=== PATIENT | male | born 1980 | race Caucasian/White ===

== ENCOUNTER 2017-10-25 22:17 | Emergency (ER) | payer MEDICAID, SELFPAY ==
[2017-10-25 22:18] VITALS: BP 145/82; PULSE 82; RESP 14; TEMP 36.2; O2SAT 97; BMI 20.7
--- NOTE | 2017-10-25 23:04 | ED.DEP ---
ED Disposition - Plan for ED Patient: Chief Complaint: Dental Instructions: ED Tooth Pain Prescriptions: Naproxen [Naprosyn] 500 mg PO BID PRN #20 tablet Penicillin V Potassium 500 mg PO 4X/DAY #40 tablet Referrals: NOT,DEFINED [Primary Care Provider] -
--- NOTE | 2017-10-25 23:06 | ED.VISSUMM ---
- ER Visit Summary Date of Service: 10/25/17 Chief Complaint: Dental pain History of Present Illness: The patient is a 36 M presenting with dental pain. He states this started today. He has pain is a right lower teeth. He tried Tylenol and Orajel at home. He does not currently have a dentist. He denies fever or swelling. Denies other complaints. Physical Examination: Vitals are stable. Patient is afebrile. Alert no acute distress. HEENT exam right lower molar decay with no surrounding fluctuance. No sublingual edema. Neck is supple. Lungs are clear and equal bilaterally. Heart is regular rate and rhythm. Extremities are unremarkable. Skin is warm and dry. Remainder of exam is unremarkable. Emergency Department Course and Treatment: Patient was given one [place] in the emergency department. He is given a prescription for Naprosyn and penicillin. He is given a dental referral list. Advised to follow-up with a dentist. Advised return ED if worsening complaints. Disposition: Discharge home Impression: Odontalgia This note was generated with [employer] dictation software. It may contain incorrect words, spelling, and punctuation that were not noted in review of the chart prior to signing ED Disposition - Plan for ED Patient: Chief Complaint: Dental Instructions: ED Tooth Pain Prescriptions: Naproxen [Naprosyn] 500 mg PO BID PRN #20 tablet Penicillin V Potassium 500 mg PO 4X/DAY #40 tablet Referrals: NOT,DEFINED [Primary Care Provider] -
[2017-10-25] MEDS: HYDROcodone Bitartrate/Apap 5/325 Tablet PO (23:25)
[2017-10-25] MEDS: Penicillin Vk 250 MG Tablet 500 MG PO (23:26)
[2017-10-25 23:29] VITALS: PULSE 76; RESP 16; O2SAT 98
== END 2017-10-25 23:30 | disposition home or self-care (01) ==
LOC: ED 23:08
PROVIDERS: Emergency Provider Emergency Medicine
DX: K08.89 Other specified disorders of teeth and supporting structures (principal); K02.9 Dental caries, unspecified; Z72.0 Tobacco use
CPT/HCPCS: 99283